=== PATIENT | male | born 1945 | race American Indian/Alaskan Native ===

== ENCOUNTER 2017-04-12 12:21 | Emergency (ER) | payer OTHER ==
[~2017-04-12] VITALS: Ht 180.3 cm; Wt 152.4 kg
[~2017-04-12 12:21] MED LIST: ALBU2TAB PO; ALBU8.5H3 INH; AMIO200T42 PO; AMOX-367 PO; APIX5TAB PO; BISA10SU65 PR; CEFT1FRO2 IV; DOXY100T9 PO; FLUT1DIS3 INH; FURO-92 PO; FURO20TA3 PO; INSU100I13 SQ; INSU100I18 SQ-INSULIN; IPRA3AMP NPPB; METF10002 PO; METF500T4 PO; METO25TA35 PO; MULT-750 PO; OXYC5TAB3 PO; PANT40TA5 PO; POLY17PO5 PO; POTA20TA91 PO; SENN1TAB7 PO; TIOT18CA INH
[2017-04-12 12:27] VITALS: BP 154/83
[2017-04-12] MEDS ORDERED: OXYcodone/APAP 5/325MG TABLET PO ONE (13:00)
[2017-04-12] MEDS ORDERED: DIAZEPAM 5 MG TABLET PO ONE (13:00)
[2017-04-12] MEDS ORDERED: KETOROLAC 30 MG/1 ML IM ONE (13:00)
[2017-04-12] MEDS ORDERED: KETOROLAC 30 MG/1 ML ONE (13:47)
== END 2017-04-12 15:06 | disposition home or self-care (01) ==
LOC: ED 14:50
DX: S33.5XXA Sprain of ligaments of lumbar spine, initial encounter (principal); M51.36 Other intervertebral disc degeneration, lumbar region; M54.41 Lumbago with sciatica, right side; I11.0 Hypertensive heart disease with heart failure; I50.9 Heart failure, unspecified; J44.9 Chronic obstructive pulmonary disease, unspecified; E11.65 Type 2 diabetes mellitus with hyperglycemia; E78.5 Hyperlipidemia, unspecified; K21.9 Gastro-esophageal reflux disease without esophagitis; Z90.49 Acquired absence of other specified parts of digestive tract; X58.XXXA Exposure to other specified factors, initial encounter; Y93.89 Activity, other specified; Y92.89 Other specified places as the place of occurrence of the external cause; Y99.9 Unspecified external cause status
CPT/HCPCS: 72110; 96372; 99284; J1885

== ENCOUNTER 2017-11-10 17:22 | Inpatient (IN) | payer OTHER ==
[~2017-11-10] VITALS: Ht 182.9 cm; Wt 102.1 kg
[~2017-11-10 17:22] MED LIST changes: -ALBU8.5H3 INH; +ALBU8.5H8 INH
[2017-11-10] MEDS ORDERED: SODIUM CHLORIDE FLUSH 10ML SYR IVF ONE (18:00)
[2017-11-10 18:12] LABS: HEMATOCRIT 35.4 % (39.2-51.8); HEMOGLOBIN 11.2 g/dL (13.7-18.0); WHITE BLOOD COUNT 10.1 x10^3/uL (3.4-10)
[2017-11-10] MEDS ORDERED: SODIUM CHLORIDE 0.9%, 500ML IVBOLUS ONE ×2 (18:30→19:00)
[2017-11-10] MEDS ORDERED: ALBUTEROL SULFATE 2.5 MG/3 ML NPPB ONE (18:30)
[2017-11-10 18:32] LABS: BLOOD UREA NITROGEN 41 mg/dL (7-18)
[2017-11-10 18:33] LABS: IS PT STATUS REG ER OR PRE ER? YES
[2017-11-10] MEDS ORDERED: CEFTRIAXONE PMX 1GM/50ML 50 ML ONE (18:47)
[2017-11-10] MEDS ORDERED: CEFTRIAXONE PMX 1GM/50ML 50 ML IVPB ONE (19:00)
[2017-11-10] MEDS ORDERED: AZITHROMYCIN 500 MG in SODIUM CHLORIDE 0.9% 250 ML IV ONE (19:00)
[2017-11-10] MEDS ORDERED: DOCUSATE 100 MG CAPSULE PO PRN (20:00)
[2017-11-10] MEDS ORDERED: ACETAMINOPHEN 325 MG TABLET PO PRN (20:00)
[2017-11-10] MEDS ORDERED: TEMAZEPAM 15 MG CAPSULE PO PRN (20:00)
[2017-11-10] MEDS ORDERED: ONDANSETRON ODT 4 MG PO PRN (20:00)
[2017-11-10] MEDS ORDERED: ENOXAPARIN 30 MG/0.3 ML SQ SCH (20:00)
[2017-11-10] MEDS ORDERED: PHARMACY MAY ADJ FOR RENAL FX MC PRN (20:00)
[2017-11-10] MEDS ORDERED: ENALAPRILAT 1.25 MG/ML, 2ML IVPush PRN (20:00)
[2017-11-10 21:35] VITALS: BP 84/42
[2017-11-10] MEDS ORDERED: SODIUM CHLORIDE 0.9% 1,000ML IVBOLUS ONE (22:30)
[2017-11-10] MEDS: SODIUM CHLORIDE 0.9% 1,000 ML IV SCH (22:47)
[2017-11-10] MEDS: HEPARIN 5,000 UNITS/ML, 1ML SQ SCH (22:47)
[2017-11-11 00:05] VITALS: BP 121/62
[2017-11-11 01:37] VITALS: BP 122/72
[2017-11-11 01:39] LABS: IS PT STATUS REG ER OR PRE ER? NO
[2017-11-11] MEDS: HEPARIN 5,000 UNITS/ML, 1ML SQ SCH ×3 (06:10→21:53)
[2017-11-11 06:32] LABS: BLOOD UREA NITROGEN 29 mg/dL (7-18)
[2017-11-11 06:33] LABS: HEMATOCRIT 32.9 % (39.2-51.8); HEMOGLOBIN 10.4 g/dL (13.7-18.0); WHITE BLOOD COUNT 7.8 x10^3/uL (3.4-10)
[2017-11-11 06:37] LABS: IS PT STATUS REG ER OR PRE ER? NO
[2017-11-11 06:58] VITALS: BP 129/73
[2017-11-11] MEDS ORDERED: ALBUTEROL/IPRATROPIUM 2.5MG/0.5MG, 3 ML NPPB SCH (07:00)
[2017-11-11] MEDS ORDERED: OXYcodone IR 5MG TABLET PO PRN (09:00)
[2017-11-11] MEDS: CEFTRIAXONE PMX 1GM/50ML 50 ML IV SCH ×2 (10:08→22:26)
[2017-11-11] MEDS ORDERED: OXYC-307 PO (11:50)
[2017-11-11] MEDS ORDERED: HYDR4TAB48 PO (11:50)
[2017-11-11] MEDS ORDERED: GABA600T2 PO (11:50)
[2017-11-11] MEDS: SODIUM CHLORIDE 0.9% 1,000 ML IV SCH ×2 (12:28→20:23)
[2017-11-11 13:08] VITALS: BP 119/68
[2017-11-11] MEDS ORDERED: HYDROmorphone 2MG TABLET ONE ×2 (15:24)
[2017-11-11] MEDS: GABAPENTIN 300 MG CAPSULE PO SCH ×2 (15:26→20:23)
[2017-11-11] MEDS: HYDROmorphone 4MG TABLET PO PRN (15:26)
[2017-11-11] MEDS: OXYcodone/APAP 10/325MG TABLET PO PRN (16:51)
[2017-11-11] MEDS: INSULIN ASPART 100 UNITS/ML, PEN SQ-INSULIN SCH ×2 (18:09→20:23)
[2017-11-11 18:37] VITALS: BP 113/63
[2017-11-11] MEDS: AZITHROMYCIN 500 MG in SODIUM CHLORIDE 0.9% 250 ML IV SCH (20:22)
[2017-11-11] MEDS: APIXABAN 5 MG TABLET PO SCH (20:23)
[2017-11-11] MEDS: AMIODARONE 200 MG TABLET PO SCH (20:23)
[2017-11-11] MEDS ORDERED: DILTIAZEM 5 MG/ML, 5ML IVPush ONE (22:30)
[2017-11-12 00:56] VITALS: BP 104/59
[2017-11-12] MEDS: OXYcodone/APAP 10/325MG TABLET PO PRN ×2 (00:59→12:16)
[2017-11-12] MEDS: GABAPENTIN 300 MG CAPSULE PO SCH ×4 (00:59→20:24)
[2017-11-12] MEDS: HEPARIN 5,000 UNITS/ML, 1ML SQ SCH ×3 (04:06→22:02)
[2017-11-12 04:42] VITALS: BP 134/69
[2017-11-12] MEDS: METOPROLOL TARTRATE 25 MG TABLET PO SCH ×3 (05:16→20:24)
[2017-11-12] MEDS: SODIUM CHLORIDE 0.9% 1,000 ML IV SCH ×2 (05:16→12:17)
[2017-11-12 06:40] VITALS: BP 106/67
[2017-11-12] MEDS ORDERED: ALBUTEROL/IPRATROPIUM 2.5MG/0.5MG, 3 ML NPPB PRN (07:00)
[2017-11-12] MEDS ORDERED: HYDROmorphone 2MG TABLET ONE (08:19)
[2017-11-12] MEDS: HYDROmorphone 4MG TABLET PO PRN (08:20)
[2017-11-12] MEDS: APIXABAN 5 MG TABLET PO SCH ×2 (08:21→20:24)
[2017-11-12] MEDS: AMIODARONE 200 MG TABLET PO SCH ×2 (08:21→20:24)
[2017-11-12] MEDS: INSULIN ASPART 100 UNITS/ML, PEN SQ-INSULIN SCH ×4 (08:26→20:25)
[2017-11-12 08:31] LABS: HEMATOCRIT 34.8 % (39.2-51.8); HEMOGLOBIN 11.1 g/dL (13.7-18.0); WHITE BLOOD COUNT 5.8 x10^3/uL (3.4-10)
[2017-11-12 08:43] LABS: BLOOD UREA NITROGEN 9 mg/dL (7-18)
[2017-11-12] MEDS ORDERED: METOPROLOL TARTRATE 25 MG TABLET PO SCH ×4 (09:00→21:00)
[2017-11-12] MEDS: CEFTRIAXONE PMX 1GM/50ML 50 ML IV SCH ×2 (12:17→22:02)
[2017-11-12 12:28] VITALS: BP 107/73
[2017-11-12] MEDS ORDERED: TAMSULOSIN 0.4 MG CAP.ER.24H PO SCH (13:30)
[2017-11-12] MEDS: TAMSULOSIN 0.4 MG CAP.ER.24H PO SCH (17:22)
[2017-11-12 20:00] VITALS: BP 117/73
[2017-11-12] MEDS: AZITHROMYCIN 500 MG in SODIUM CHLORIDE 0.9% 250 ML IV SCH (20:23)
[2017-11-13] MEDS ORDERED: METOPROLOL TARTRATE 25 MG TABLET PO SCH (01:30)
[2017-11-13 02:19] VITALS: BP 114/67
[2017-11-13] MEDS: METOPROLOL TARTRATE 25 MG TABLET PO SCH ×4 (02:29→20:13)
[2017-11-13] MEDS: GABAPENTIN 300 MG CAPSULE PO SCH ×4 (02:29→20:12)
[2017-11-13] MEDS: OXYcodone/APAP 10/325MG TABLET PO PRN ×2 (02:29→16:09)
[2017-11-13 04:59] LABS: HEMOGLOBIN 10.9 g/dL (13.7-18.0); WHITE BLOOD COUNT 7.4 x10^3/uL (3.4-10)
[2017-11-13 05:05] LABS: BLOOD UREA NITROGEN 11 mg/dL (7-18)
[2017-11-13] MEDS: HEPARIN 5,000 UNITS/ML, 1ML SQ SCH ×3 (05:17→22:22)
[2017-11-13 07:00] VITALS: BP 121/65
[2017-11-13] MEDS: INSULIN ASPART 100 UNITS/ML, PEN SQ-INSULIN SCH ×4 (08:46→22:22)
[2017-11-13] MEDS: TAMSULOSIN 0.4 MG CAP.ER.24H PO SCH (08:46)
[2017-11-13] MEDS: AMIODARONE 200 MG TABLET PO SCH ×2 (08:46→20:13)
[2017-11-13] MEDS: APIXABAN 5 MG TABLET PO SCH ×2 (08:46→20:12)
[2017-11-13] MEDS: AZITHROMYCIN 500 MG TABLET PO SCH (12:02)
[2017-11-13 12:13] VITALS: BP 126/80
[2017-11-13 17:37] VITALS: BP 127/71
[2017-11-13 18:50] VITALS: BP 115/79
[2017-11-14] MEDS: GABAPENTIN 300 MG CAPSULE PO SCH ×4 (02:09→20:49)
[2017-11-14] MEDS: METOPROLOL TARTRATE 25 MG TABLET PO SCH ×3 (02:09→15:32)
[2017-11-14 02:30] VITALS: BP 118/63
[2017-11-14 05:30] LABS: HEMATOCRIT 38.1 % (39.2-51.8); HEMOGLOBIN 12.1 g/dL (13.7-18.0); WHITE BLOOD COUNT 10.5 x10^3/uL (3.4-10)
[2017-11-14 05:53] LABS: BLOOD UREA NITROGEN 17 mg/dL (7-18)
[2017-11-14] MEDS: HEPARIN 5,000 UNITS/ML, 1ML SQ SCH ×3 (06:17→20:50)
[2017-11-14] MEDS: INSULIN ASPART 100 UNITS/ML, PEN SQ-INSULIN SCH ×4 (07:00→20:50)
[2017-11-14 09:00] VITALS: BP 154/92
[2017-11-14] MEDS: TAMSULOSIN 0.4 MG CAP.ER.24H PO SCH (09:09)
[2017-11-14] MEDS: AMIODARONE 200 MG TABLET PO SCH ×2 (09:09→20:49)
[2017-11-14] MEDS: AZITHROMYCIN 500 MG TABLET PO SCH (09:09)
[2017-11-14] MEDS: APIXABAN 5 MG TABLET PO SCH ×2 (09:09→20:49)
[2017-11-14] MEDS ORDERED: DIGOXIN 0.25 MG TABLET PO ONE (09:30)
[2017-11-14] MEDS ORDERED: DIGOXIN 0.125 MG TABLET PO SCH (09:30)
[2017-11-14 11:59] VITALS: BP 122/70
[2017-11-14 15:45] VITALS: BP 147/87
[2017-11-14] MEDS ORDERED: DIGOXIN 0.125 MG TABLET PO ONE (16:00)
[2017-11-14 19:29] VITALS: BP 130/76
[2017-11-15] MEDS: GABAPENTIN 300 MG CAPSULE PO SCH ×4 (01:32→20:11)
[2017-11-15 01:52] VITALS: BP 128/80
[2017-11-15 05:28] LABS: HEMATOCRIT 36.7 % (39.2-51.8); HEMOGLOBIN 11.5 g/dL (13.7-18.0); WHITE BLOOD COUNT 7.6 x10^3/uL (3.4-10)
[2017-11-15 05:34] LABS: BLOOD UREA NITROGEN 14 mg/dL (7-18)
[2017-11-15] MEDS: HEPARIN 5,000 UNITS/ML, 1ML SQ SCH ×2 (06:23→16:39)
[2017-11-15 08:27] VITALS: BP 147/73
[2017-11-15] MEDS: APIXABAN 5 MG TABLET PO SCH ×2 (08:48→20:11)
[2017-11-15] MEDS: INSULIN ASPART 100 UNITS/ML, PEN SQ-INSULIN SCH ×4 (08:48→20:02)
[2017-11-15] MEDS: AZITHROMYCIN 500 MG TABLET PO SCH (08:49)
[2017-11-15] MEDS: TAMSULOSIN 0.4 MG CAP.ER.24H PO SCH (08:49)
[2017-11-15] MEDS: AMIODARONE 200 MG TABLET PO SCH ×3 (08:49→20:11)
[2017-11-15 15:22] VITALS: BP 133/74
[2017-11-15 18:43] VITALS: BP 126/76
[2017-11-15] MEDS ORDERED: METOPROLOL SUCCINATE 50 MG TAB.ER.24H PO SCH (19:00)
[2017-11-15] MEDS: METOPROLOL SUCCINATE 50 MG TAB.ER.24H PO SCH (20:11)
[2017-11-16] MEDS: HEPARIN 5,000 UNITS/ML, 1ML SQ SCH ×2 (00:30→08:11)
[2017-11-16 01:24] VITALS: BP 157/95
[2017-11-16] MEDS: GABAPENTIN 300 MG CAPSULE PO SCH ×2 (02:00→08:11)
[2017-11-16 05:41] LABS: HEMATOCRIT 36.9 % (39.2-51.8); HEMOGLOBIN 11.6 g/dL (13.7-18.0); WHITE BLOOD COUNT 7.9 x10^3/uL (3.4-10)
[2017-11-16 05:52] LABS: BLOOD UREA NITROGEN 10 mg/dL (7-18)
[2017-11-16 06:00] LABS: DIFF TOTAL CELLS COUNTED 100 CELL DIFF
[2017-11-16 06:02] LABS: ANISOCYTOSIS 1+; VERIFY COUNTS? YES
[2017-11-16 06:03] LABS: LARGE PLATELETS 1+; POLYCHROMASIA 1+
[2017-11-16] MEDS: INSULIN ASPART 100 UNITS/ML, PEN SQ-INSULIN SCH ×2 (07:00→11:00)
[2017-11-16 07:36] VITALS: BP 150/91
[2017-11-16] MEDS: AZITHROMYCIN 500 MG TABLET PO SCH (08:11)
[2017-11-16] MEDS: APIXABAN 5 MG TABLET PO SCH (08:11)
[2017-11-16] MEDS: TAMSULOSIN 0.4 MG CAP.ER.24H PO SCH (08:11)
[2017-11-16] MEDS: AMIODARONE 200 MG TABLET PO SCH (08:11)
[2017-11-16] MEDS: METOPROLOL SUCCINATE 50 MG TAB.ER.24H PO SCH (08:12)
[2017-11-16] MEDS ORDERED: MAGNESIUM SULFATE PMX 2GM/50ML 50 ML IV ONE (09:00)
[2017-11-16] MEDS ORDERED: DILTIAZEM 30 MG TABLET PO ONE (09:30)
== END 2017-11-16 12:36 | disposition home or self-care (01) | DRG 871 ==
LOC: ED 18:40 → EDIP 19:39 → 4EST 21:17 → DCLOUNGE 11-16 12:27
PROVIDERS: ADMIT Internal Medicine; ATTEND Internal Medicine
PROC: 5A09357 Assistance with Respiratory Ventilation, Less than 24 Consecutive Hours, Continuous Positive Airway Pressure (ICD-10-PCS; principal; 2017-11-10)
DX: A41.9 Sepsis, unspecified organism (principal); J18.9 Pneumonia, unspecified organism; J96.01 Acute respiratory failure with hypoxia; N17.0 Acute kidney failure with tubular necrosis; I11.0 Hypertensive heart disease with heart failure; D68.69 Other thrombophilia; I50.32 Chronic diastolic (congestive) heart failure; I48.91 Unspecified atrial fibrillation; E66.01 Morbid (severe) obesity due to excess calories; J96.21 Acute and chronic respiratory failure with hypoxia; J44.0 Chronic obstructive pulmonary disease with (acute) lower respiratory infection; N39.0 Urinary tract infection, site not specified; N20.0 Calculus of kidney; G89.29 Other chronic pain; R65.20 Severe sepsis without septic shock; G47.33 Obstructive sleep apnea (adult) (pediatric); E11.9 Type 2 diabetes mellitus without complications; E78.5 Hyperlipidemia, unspecified; I25.10 Atherosclerotic heart disease of native coronary artery without angina pectoris; Z79.4 Long term (current) use of insulin; Z79.899 Other long term (current) drug therapy; Z82.5 Family history of asthma and other chronic lower respiratory diseases; Z87.891 Personal history of nicotine dependence; Z99.81 Dependence on supplemental oxygen; Z79.01 Long term (current) use of anticoagulants; Z90.49 Acquired absence of other specified parts of digestive tract; Z68.30 Body mass index [BMI] 30.0-30.9, adult
CPT/HCPCS: 36415; 71010; 74176; 76770; 80048; 80162; 81001; 82040; 82962; 83605; 83880; 84145; 84484; 85025; 87040; 87086; 93005; 93306; 94640; 94660; 94667; 96361; 96365; J0456; J0696; J1644; J1815; J3475; J7030; J7040; J7050; J7512